=== PATIENT | female | born 1940 | race Caucasian/White ===

== ENCOUNTER → 2016-12-06 16:40 | Outpatient (CLI) | payer MEDICARE, OTHER ==
[2016-02-12 14:25] VITALS: BMI 58.7
[~2016-12-06 16:40] MED LIST: ACETAMINOPHEN500 M1 PO; ADVAIR 250/501 DISK INH; ALBUTEROL2.5 MG/3 M INH; ANTIVERT25 MG PO; ASPIRIN 81 MG E81 MG PO; ATIVAN0.5 MG PO; BROVANA15 MCG/2 M INH; CARDIZEM CD240 MG PO; COUMADIN7.5 MG PO; ELIQUIS2.5 MG PO; ELIQUIS5 MG PO; FELDENE20 MG PO; FERREX 150 PLUS1 CAP PO; IPRAT-ALBUT 0.5-3 ML; KEFLEX500 MG PO; KLOR-CON M2020 MEQ PO; LASIX20 MG PO; LASIX40 MG PO; LEVAQUIN500 MG PO; LISINOPRIL10 MG PO; MEDROL DOSE PACK4 MG PO; MUCUS RELIEF400 MG PO; NITRO-BID60 GM TP; PROAIR HFA8.5 GM INH; PULMICORT0.5 MG/21; ROCEPHIN 1 GM/D51 G1 IV; SOLU-MEDRO40 MG/1 M1 IV; SYNTHROID100 MCG PO; SYNTHROID88 MCG PO; ULTRAM50 MG PO; VIBRAMYCIN 100100 M1 IV; VITAMIN D31000 UNIT PO; VITAMIN E400 UNI2 PO; ZITHROMAX TRI-500 MG PO
== END | disposition home or self-care (01) ==
LOC: D.MAMMO 08:30
DX: Z12.31 Encounter for screening mammogram for malignant neoplasm of breast (principal)

== ENCOUNTER → 2018-08-14 10:00 | Outpatient (CLI) | payer MEDICARE, BC ==
[2016-02-12 14:25] VITALS: BMI 58.7
== END | disposition home or self-care (01) ==
LOC: D.HCCARDIO 10:00
PROVIDERS: ATTEND Internal Medicine Cardiovascular Disease
DX: I35.0 Nonrheumatic aortic (valve) stenosis (principal)

== ENCOUNTER → 2019-12-03 09:25 | Outpatient (CLI) | payer MEDICARE, BC ==
[2016-02-12 14:25] VITALS: BMI 58.7
== END | disposition home or self-care (01) ==
LOC: D.HCCECHO 09:25
PROVIDERS: ATTEND Internal Medicine Cardiovascular Disease
DX: I25.10 Atherosclerotic heart disease of native coronary artery without angina pectoris (principal)